=== PATIENT | male | born 1955 | race Caucasian/White ===

== ENCOUNTER → 2019-06-09 | Outpatient (CLI) | payer MEDICARE | END | disposition home or self-care (01) | LOC: CT 07:45 | DX: R10.32 Left lower quadrant pain (principal) ==

== ENCOUNTER → 2021-01-14 | Day surgery (SDC) | payer MEDICARE ==
[~2021-01-14] VITALS: Ht 177.8 cm; Wt 108.9 kg
[2021-01-14 07:15] VITALS: BP 149/87
[2021-01-14 08:00] VITALS: BP 148/78
[2021-01-14 08:13] VITALS: BP 158/83
[2021-01-14 08:30] VITALS: BP 152/83
== END | disposition home or self-care (01) ==
LOC: SDC 01-10 01:31
PROVIDERS: ATTEND Surgery
DX: D64.9 Anemia, unspecified (principal); K57.30 Diverticulosis of large intestine without perforation or abscess without bleeding; K29.50 Unspecified chronic gastritis without bleeding; K21.9 Gastro-esophageal reflux disease without esophagitis; Z79.899 Other long term (current) drug therapy

== ENCOUNTER → 2022-02-17 | Outpatient (CLI) | payer MEDICARE | END | disposition home or self-care (01) | LOC: MRI 03:15 | PROVIDERS: ATTEND Specialist | DX: R42 Dizziness and giddiness (principal) ==

== ENCOUNTER → 2023-04-16 | Outpatient (CLI) | payer MEDICARE, OTHER ==
[~2023-04-16] MED LIST: AEROECLIPSE II1 EACH MC; DOXYCYCLINE HY100 M3 PO; Ipratropium Brom3 ML INH; K-TAB20 MEQ PO; LASIX40 MG PO; MUCUS RELIEF600 MG PO; NEURONTIN300 MG PO; PREDNISONE10 MG PO; ZITHROMAX250 MG PO
== END | disposition home or self-care (01) ==
LOC: RAD 13:05
PROVIDERS: ATTEND Family Medicine
DX: J90 Pleural effusion, not elsewhere classified (principal)

== ENCOUNTER → 2023-07-20 | Outpatient (CLI) | payer MEDICARE, OTHER | END | disposition home or self-care (01) | LOC: RAD 09:23 | PROVIDERS: ATTEND Family Medicine | DX: J90 Pleural effusion, not elsewhere classified (principal); R06.00 Dyspnea, unspecified ==

== ENCOUNTER 2023-08-17 09:29 | Emergency (ER) | payer MEDICARE, OTHER ==
[~2023-08-17] VITALS: Ht 177.8 cm; Wt 98.9 kg
[2023-08-17] MEDS ORDERED: Ondansetron Hydrochloride 4 MG/2 ML VIAL IV ONE (10:40)
[2023-08-17 10:55] LABS: HEMATOCRIT 27.2 % (42.0-52.0); MEAN CELL VOLUME 107.1 fl (80.0-94.0); MEAN CORPUSCULAR HGB 31.1 pg (27.0-31.0); MEAN PLATELET VOLUME 9.3 fl (9.6-12.3); PLATELET COUNT AUTOMATED 399 10*3/uL (130-400); RED BLOOD COUNT 2.54 10*6/uL (4.50-5.90); RED CELL DISTRI WIDTH 18.6 % (0-14.5); WHITE BLOOD COUNT 13.8 10*3/uL (4.8-10.8)
[2023-08-17 10:56] LABS: MANUAL DIFF REFLEX YES
[2023-08-17 11:06] LABS: ACT PARTIAL THROMBO TIME 36.6 SECONDS (20.0-32.1)
[2023-08-17 11:15] LABS: BASOPHILS 3 % (0-1); TOTAL CELLS COUNTED 100 #CELLS
[2023-08-17 11:16] LABS: PLATELET SUFFICIENCY NORMAL (NORMAL); POLYCHROMASIA SLIGHT
[2023-08-17 11:24] LABS: ALKALINE PHOSPHATASE 91 U/L (46-116); BUN 14 mg/dl (9-23); CHLORIDE 105 mmol/L (98-107); POTASSIUM 4.2 mmol/L (3.4-5.1); SGPT/ALT 11 U/L (5-49); TOTAL PROTEIN 5.9 gm/dL (6.0-8.0)
[2023-08-17] MEDS ORDERED: Ceftriaxone Sodium 1 GM/10 ML SYR IV ONE (12:15)
[2023-08-17] MEDS ORDERED: AZITHROMYCIN 250 MG TAB PO ONE (12:15)
[2023-08-17] MEDS ORDERED: LEVOFLOXACIN750 M2 PO (13:15)
[2023-08-17] MEDS ORDERED: LEVOFLOXACIN 150 ML IV ONE (13:40)
== END 2023-08-17 15:15 | disposition home or self-care (01) ==
LOC: ED 09:29
PROVIDERS: Emergency Medicine
DX: J90 Pleural effusion, not elsewhere classified (principal); J18.9 Pneumonia, unspecified organism; J44.9 Chronic obstructive pulmonary disease, unspecified; F17.200 Nicotine dependence, unspecified, uncomplicated; Z88.0 Allergy status to penicillin; Z90.49 Acquired absence of other specified parts of digestive tract

== ENCOUNTER → 2024-03-01 | Outpatient (CLI) | payer MEDICARE, OTHER ==
[~2024-03-01] MED LIST changes: +LEVOFLOXACIN750 M2 PO
== END | disposition home or self-care (01) ==
LOC: RAD 08:57
PROVIDERS: ATTEND Family Medicine
DX: J90 Pleural effusion, not elsewhere classified (principal); R06.02 Shortness of breath; J44.9 Chronic obstructive pulmonary disease, unspecified

== ENCOUNTER → 2024-04-01 | Outpatient (CLI) | payer MEDICARE, OTHER ==
[~2024-04-01] MED LIST changes: +Albuterol Sulfate 2.5 MG/3 ML VIAL NEB ONE
== END | disposition home or self-care (01) ==
LOC: CP 01:57
PROVIDERS: ATTEND Internal Medicine Hematology & Oncology
DX: Z01.818 Encounter for other preprocedural examination (principal); Z76.82 Awaiting organ transplant status; C93.10 Chronic myelomonocytic leukemia not having achieved remission; Z79.899 Other long term (current) drug therapy; I51.7 Cardiomegaly; J44.9 Chronic obstructive pulmonary disease, unspecified; R06.09 Other forms of dyspnea

== ENCOUNTER 2024-06-03 14:16 | Emergency (ER) | payer MEDICARE, OTHER ==
[~2024-06-03] VITALS: Wt 98.0 kg
[~2024-06-03 14:16] MED LIST changes: -Albuterol Sulfate 2.5 MG/3 ML VIAL NEB ONE
[2024-06-03] MEDS ORDERED: Tdap Vaccine 0.5 ML SYR (Adult Vaccine) IM ONE (15:10)
[2024-06-03] MEDS ORDERED: Lidocaine Hydrochloride 30 ML VIAL IJ ONE (15:10)
[2024-06-03] MEDS ORDERED: Lidocaine Hydrochloride 5 ML AMP IJ ONE (15:30)
[2024-06-03] MEDS ORDERED: PERCOCET 5-3251 EACH PO (19:13)
[2024-06-03] MEDS ORDERED: Acetaminophen/Oxycodone 5 MG/325 MG TABLET PO ONE (19:30)
== END 2024-06-03 19:30 | disposition home or self-care (01) ==
LOC: ED 14:16
DX: S61.411A Laceration without foreign body of right hand, initial encounter (principal); S20.219A Contusion of unspecified front wall of thorax, initial encounter; W18.39XA Other fall on same level, initial encounter; Y93.89 Activity, other specified; Y92.89 Other specified places as the place of occurrence of the external cause; Y99.8 Other external cause status

== ENCOUNTER → 2024-06-11 | Outpatient (CLI) | payer MEDICARE, OTHER ==
[~2024-06-11] MED LIST changes: +PERCOCET 5-3251 EACH PO
[2024-06-11 16:32] LABS: ALKALINE PHOSPHATASE 79 U/L (46-116); BUN 11 mg/dl (9-23); CHLORIDE 108 mmol/L (98-107); POTASSIUM 4.4 mmol/L (3.4-5.1); TOTAL PROTEIN 6.2 gm/dL (6.0-8.0)
[2024-06-11 16:38] LABS: SGPT/ALT < 7 U/L (5-49)
== END | disposition home or self-care (01) ==
LOC: LAB 15:36 → US 16:00
PROVIDERS: ATTEND Family Medicine
DX: R60.0 Localized edema (principal)

== ENCOUNTER 2024-06-28 05:52 | Emergency (ER) | payer OTHER, MEDICARE ==
[~2024-06-28] VITALS: Ht 177.8 cm; Wt 97.5 kg
[2024-06-28] MEDS ORDERED: SPIRIVA RESPIMAT4 GM INH (06:08)
[2024-06-28] MEDS ORDERED: PERCOCET 5-3251 EACH PO (09:44)
== END 2024-06-28 09:52 | disposition home or self-care (01) ==
LOC: ED 05:52
DX: S22.41XA Multiple fractures of ribs, right side, initial encounter for closed fracture (principal); F17.200 Nicotine dependence, unspecified, uncomplicated; I10 Essential (primary) hypertension; E78.5 Hyperlipidemia, unspecified; Z88.0 Allergy status to penicillin; Z79.899 Other long term (current) drug therapy; W18.39XA Other fall on same level, initial encounter; Y93.89 Activity, other specified; Y92.89 Other specified places as the place of occurrence of the external cause; Y99.8 Other external cause status

== ENCOUNTER → 2024-08-04 | Outpatient (CLI) | payer MEDICARE, OTHER ==
[~2024-08-04] MED LIST changes: +SPIRIVA RESPIMAT4 GM INH
== END | disposition home or self-care (01) ==
LOC: RAD 11:01
PROVIDERS: ATTEND Internal Medicine Hematology & Oncology
DX: J90 Pleural effusion, not elsewhere classified (principal); C93.10 Chronic myelomonocytic leukemia not having achieved remission; R16.1 Splenomegaly, not elsewhere classified; R97.20 Elevated prostate specific antigen [PSA]; R26.0 Ataxic gait; R59.0 Localized enlarged lymph nodes; Z98.890 Other specified postprocedural states

== ENCOUNTER 2024-08-09 18:58 | Emergency (ER) | payer MEDICARE, OTHER ==
[~2024-08-09] VITALS: Ht 177.8 cm; Wt 97.5 kg
[2024-08-09] MEDS ORDERED: diazePAM 5 MG TAB PO ONE (19:50)
[2024-08-09] MEDS ORDERED: Dexamethasone Sodium Phospha 20 MG/5 ML VIAL IM ONE (19:50)
[2024-08-09] MEDS ORDERED: Ondansetron Hydrochloride 4 MG TAB PO ONE (19:50)
[2024-08-09] MEDS ORDERED: MORPHINE Sulfate 2 MG/ML SYR IM ONE (19:50)
[2024-08-09] MEDS ORDERED: METHOCARBAMOL750 M1 PO (20:18)
[2024-08-09] MEDS ORDERED: PREDNISONE20 M1 PO (20:18)
[2024-08-09] MEDS ORDERED: PERCOCET 5-3251 EACH PO (20:18)
== END 2024-08-09 20:53 | disposition home or self-care (01) ==
LOC: ED 18:58
DX: S39.012A Strain of muscle, fascia and tendon of lower back, initial encounter (principal); Z88.0 Allergy status to penicillin; Z79.899 Other long term (current) drug therapy; Z79.2 Long term (current) use of antibiotics; Z87.891 Personal history of nicotine dependence; X50.0XXA Overexertion from strenuous movement or load, initial encounter; Y93.89 Activity, other specified; Y92.89 Other specified places as the place of occurrence of the external cause; Y99.8 Other external cause status

== ENCOUNTER → 2024-08-11 | Outpatient (CLI) | payer MEDICARE, OTHER ==
[~2024-08-11] MED LIST changes: +METHOCARBAMOL750 M1 PO; +PREDNISONE20 M1 PO
== END | disposition home or self-care (01) ==
LOC: RAD 09:05
PROVIDERS: ATTEND Chiropractor
DX: M47.817 Spondylosis without myelopathy or radiculopathy, lumbosacral region (principal); M48.061 Spinal stenosis, lumbar region without neurogenic claudication; M54.50 Low back pain, unspecified

== ENCOUNTER 2024-08-17 15:51 | Emergency (ER) | payer MEDICARE, OTHER ==
[~2024-08-17] VITALS: Ht 177.8 cm; Wt 99.8 kg
[2024-08-17] MEDS ORDERED: methylPREDNISolone sod succ 1,000 MG/16 ML VIAL IM ONE (20:30)
[2024-08-17] MEDS ORDERED: Cyclobenzaprine Hydrochlorid 10 MG TAB PO ONE (20:30)
[2024-08-17] MEDS ORDERED: Acetaminophen/Hydrocodone 5 MG/325 MG TABLET PO ONE (20:30)
[2024-08-17] MEDS ORDERED: Ketorolac Tromethamine 60 MG/2 ML VIAL IM ONE (20:35)
[2024-08-17] MEDS ORDERED: BUPivacaine 0.25% 10 ML VIAL SC ONE ×2 (20:35)
[2024-08-17] MEDS ORDERED: methylPREDNISolone sod succ 125 MG VIAL IM ONE (20:40)
== END 2024-08-17 21:54 | disposition home or self-care (01) ==
LOC: ED 15:51
DX: M54.50 Low back pain, unspecified (principal); M79.18 Myalgia, other site; Z88.0 Allergy status to penicillin; Z79.899 Other long term (current) drug therapy; Z87.891 Personal history of nicotine dependence

== ENCOUNTER 2024-09-11 11:19 | Emergency (ER) | payer MEDICARE, OTHER ==
[~2024-09-11] VITALS: Ht 177.8 cm; Wt 90.7 kg
[2024-09-11] MEDS ORDERED: Albuterol Sulf/Ipratropium 3 ML VIAL NEB ONE (12:00)
[2024-09-11] MEDS ORDERED: Ondansetron Hydrochloride 4 MG/2 ML VIAL IV ONE (12:00)
[2024-09-11 12:11] LABS: MEAN CELL VOLUME 106.3 fl (80.0-94.0); MEAN CORPUSCULAR HGB 33.0 pg (27.0-31.0); MEAN PLATELET VOLUME 10.1 fl (9.6-12.3); NUCLEATED RED BLOOD CELL 0.1 10*3/uL (0.0-0.0); NUCLEATED RED BLOOD CELL 0.3 % (0.0-0.0); PLATELET COUNT AUTOMATED 150 10*3/uL (130-400); RED CELL DISTRI WIDTH 22.5 % (0-14.5)
[2024-09-11 12:12] LABS: MANUAL DIFF REFLEX YES
[2024-09-11 12:32] LABS: PLATELET SUFFICIENCY NORMAL (NORMAL)
[2024-09-11 12:35] LABS: BUN 25 mg/dl (9-23); SGPT/ALT 9 U/L (5-49)
[2024-09-11 12:37] LABS: CPK < 15 U/L (34-171)
[2024-09-11] MEDS ORDERED: SODIUM CHLORIDE 0.9% 1,000 ML IV SCH (13:50)
== END 2024-09-11 20:09 ==
LOC: ED 11:19
PROVIDERS: Emergency Medicine
DX: S32.020A Wedge compression fracture of second lumbar vertebra, initial encounter for closed fracture (principal); S32.030A Wedge compression fracture of third lumbar vertebra, initial encounter for closed fracture; R55 Syncope and collapse; N17.9 Acute kidney failure, unspecified; C93.10 Chronic myelomonocytic leukemia not having achieved remission; J44.9 Chronic obstructive pulmonary disease, unspecified; W18.39XA Other fall on same level, initial encounter; Y93.89 Activity, other specified; Y92.89 Other specified places as the place of occurrence of the external cause; Y99.8 Other external cause status

== ENCOUNTER 2024-09-18 11:05 | Emergency (ER) | payer MEDICARE, OTHER ==
[~2024-09-18] VITALS: Ht 177.8 cm; Wt 86.2 kg
[2024-09-18] MEDS ORDERED: SODIUM CHLORIDE 0.9% 1,000 ML IV ONE (11:45)
[2024-09-18] MEDS ORDERED: Promethazine Hydrochloride 25 MG/ML VIAL IV ONE (11:45)
[2024-09-18 12:20] LABS: MEAN CELL VOLUME 112.4 fl (80.0-94.0); MEAN CORPUSCULAR HGB 36.3 pg (27.0-31.0); MEAN PLATELET VOLUME 11.5 fl (9.6-12.3); NUCLEATED RED BLOOD CELL 0.0 10*3/uL (0.0-0.0); NUCLEATED RED BLOOD CELL 0.3 % (0.0-0.0); PLATELET COUNT AUTOMATED 97 10*3/uL (130-400); RED CELL DISTRI WIDTH 20.9 % (0-14.5)
[2024-09-18 12:21] LABS: MANUAL DIFF REFLEX YES
[2024-09-18 12:41] LABS: BUN 13 mg/dl (9-23)
[2024-09-18 12:42] LABS: PLATELET SUFFICIENCY LOW (NORMAL); STOMATOCYTE FEW
[2024-09-18 12:43] LABS: BLASTS 5 % (0-0); SGPT/ALT < 7 U/L (5-49)
== END 2024-09-18 16:26 | disposition home or self-care (01) ==
LOC: ED 11:05
PROVIDERS: Internal Medicine
DX: R11.0 Nausea (principal); F17.200 Nicotine dependence, unspecified, uncomplicated; Z88.0 Allergy status to penicillin; Z79.899 Other long term (current) drug therapy

== ENCOUNTER → 2024-10-29 | Outpatient (CLI) | payer MEDICARE, OTHER ==
[2024-10-29] VITALS (7 sets, daily range): BP systolic 90–107; BP diastolic 53–64
[~2024-10-29] MED LIST changes: +ACYCLOVIR400 MG PO; +AMBIEN5 MG PO; +BISACODYL10 MG R; +CIPRO500 MG PO; +CITALOPRAM20 MG PO; +FLEET ENEMA 13133 ML R; +GOOD NEIGHBOR M25 M1 PO; +HYDROCODONE-AC1 EAC1 PO; +MELATONIN5 M7 PO; +MIDODRINE HCL5 M1 PO; +MILK OF MA2400 MG/11 PO; +NATURE'S BLEND F1 MG PO; +NOXAFIL PO; +Ondansetron4 MG PO; +Oscal,Oyster S500 MG PO; +PANTOPRAZOLE SO40 MG PO; +POSACONAZOLE100 MG PO; +SODIUM CHLORIDE 0.9% 500 ML IV ONE; +SODIUM CHLORIDE 0.9% 500 ML IV SCH; +VITAMIN D350 MC2 PO; +ZOLPIDEM TARTRAT5 MG PO
== END ==
LOC: TRNFUSION 10-28 11:00
PROVIDERS: ATTEND Internal Medicine
DX: D64.9 Anemia, unspecified (principal)

== ENCOUNTER 2024-11-10 17:24 | Emergency (ER) | payer MEDICARE, OTHER ==
[~2024-11-10 17:24] MED LIST changes: -SODIUM CHLORIDE 0.9% 500 ML IV ONE; -SODIUM CHLORIDE 0.9% 500 ML IV SCH
[2024-11-10] MEDS ORDERED: Ondansetron Hydrochloride 4 MG/2 ML VIAL IV ONE (17:45)
[2024-11-10] MEDS ORDERED: SODIUM CHLORIDE 0.9% 1,000 ML IV ONE (17:45)
[2024-11-10 18:11] LABS: MEAN CELL VOLUME 107.2 fl (80.0-94.0); MEAN CORPUSCULAR HGB 34.0 pg (27.0-31.0); MEAN PLATELET VOLUME 11.7 fl (9.6-12.3); NUCLEATED RED BLOOD CELL 0.1 10*3/uL (0.0-0.0); NUCLEATED RED BLOOD CELL 0.3 % (0.0-0.0); PLATELET COUNT AUTOMATED 161 10*3/uL (130-400); RED CELL DISTRI WIDTH 22.1 % (0-14.5)
[2024-11-10 18:13] LABS: MANUAL DIFF REFLEX YES
[2024-11-10 18:31] LABS: BUN 16 mg/dl (9-23); SGPT/ALT 9 U/L (5-49)
[2024-11-10 18:42] LABS: PLATELET SUFFICIENCY NORMAL (NORMAL)
[2024-11-10 19:01] LABS: BASOPHILS 1 % (0-1)
[2024-11-10 19:02] LABS: BLASTS 11 % (0-0)
[2024-11-10 21:05] LABS: BILIRUBIN Negative (Negative); BLOOD Negative (Negative); CLARITY Turbid (Clear); COLOR Dark Yellow (Yellow); KETONE Trace (Negative); LEUKO ESTERASE Trace (Negative); NITRITE Negative (Negative); PH 5.0 (4.5-8.0); SPECIFIC GRAVITY 1.020 (1.001-1.030); UROBILINOGEN 1.0 E.U./dl (0.0-1.0)
[2024-11-10 21:15] LABS: BACTERIA 1+; CALCIUM OXALATE CRYSTALS Trace; MUCOUS 2+; URIC ACID CRYSTALS 1+
[2024-11-10] MEDS ORDERED: HYDROmorphONE Hydrochloride 0.5 MG/0.5 ML SYRINGE IV ONE (21:45)
[2024-11-12] MEDS ORDERED: DRONABINOL5 MG PO (18:56)
[2024-11-12] MEDS ORDERED: MIDODRINE HCL5 M1 PO (18:58)
[2024-11-12] MEDS ORDERED: REMERON15 M2 PO (19:00)
[2024-11-14] MEDS ORDERED: HYDROCODONE-AC1 EAC1 PO ×2 (12:49→12:55)
== END 2024-11-11 00:47 ==
LOC: ED 17:24
PROVIDERS: Emergency Medicine
DX: R11.2 Nausea with vomiting, unspecified (principal); D72.829 Elevated white blood cell count, unspecified; D53.9 Nutritional anemia, unspecified; E43 Unspecified severe protein-calorie malnutrition; N18.31 Chronic kidney disease, stage 3a; J44.9 Chronic obstructive pulmonary disease, unspecified

== ENCOUNTER → 2024-11-17 | Outpatient (CLI) | payer MEDICARE, OTHER ==
[2024-11-17] VITALS (15 sets, daily range): BP systolic 85–125; BP diastolic 44–74
[~2024-11-17] MED LIST changes: +DRONABINOL5 MG PO; +REMERON15 M2 PO; +SODIUM CHLORIDE 0.9% 250 ML IV SCH; +SODIUM CHLORIDE 0.9% 500 ML IV ONE
== END | disposition home or self-care (01) ==
LOC: TRNFUSION 12:51
PROVIDERS: ATTEND Student in an Organized Health Care Education/Training Program
DX: D64.9 Anemia, unspecified (principal)